=== PATIENT | male | born 1965 | race Caucasian/White ===

== ENCOUNTER 2016-09-03 16:54 | Observation (INO) ==
[2016-09-03 17:37] LABS: Basophils # 0.1 K/mcL (0.0-0.2); Basophils % 0.6 %; Eosinophils # 0.1 K/mcL (0.0-0.6); Eosinophils % 1.4 %; Hematocrit 44.5 % (37.5-50.1); Hemoglobin 14.7 g/dL (12.9-16.9); Immature Granulocytes % 0.4 % (0-4); Lymphocytes # 2.6 K/mcL (0.6-4.6); Lymphocytes % 26.3 %; Mean Corpuscular Hemoglobin 28.6 pg (28.0-33.3); Mean Corpuscular Volume 86.6 fL (83.0-100.0); Mean Platelet Volume 9.4 fL (9.4-12.4); Monocytes # 0.8 K/mcL (0.0-1.3); Monocytes % 7.9 %; Neutrophils # 6.4 K/mcL (1.6-8.9); Platelet Count 253 K/mcL (140-400); Red Blood Count 5.14 M/mcL (4.19-5.50); Red Cell Distribution Width 12.4 % (11.5-14.5); Segmented Neutrophils % 63.4 %
--- NOTE | 2016-09-03 17:40 | Emergency Department Note ---
Disposition Clinical Impression: Chest pain Qualifiers: Chest pain type: unspecified Qualified Code(s): R07.9 - Chest pain, unspecified Disposition: Admitted As Inpatient Condition: Good [facility] - General Adult HPI - General Stated complaint: chest pain Time Seen by Provider: 09/03/16 17:04 Source: patient Mode of arrival: ambulatory Limitations: no limitations Nursing Notes Reviewed: Yes Vital Signs Reviewed: Yes - History of Present Illness HPI Narrative: Patient here for evaluation of chest pain and associated tightness that started at 2 PM. Patient has a history of atrial fibrillation and pacemaker placement secondary to cardiomyopathy. Diabetes. Patient states symptoms started while working and sitting at a desk. Patient states that there is no specific stressors beyond on basic financial stress. Patient states this feels different than his acid reflux in the past and was not eating at this point. Patient states that symptoms are worse when he is laying down slightly better when sitting up. Patient has had some sinus congestion and was recently started on antibiotics. No specific viral syndromes at this time. Patient's tightness of his \ chest does not cause him to feel short of breath. - Related Data Home Medications Medication Instructions Recorded Confirmed Aspirin [Adult Low Dose Aspirin EC] 81 mg PO HS 02/04/15 02/04/15 Carvedilol [Coreg] 50 mg PO BID 02/04/15 02/04/15 Dicyclomine [Bentyl] 20 mg PO QID 02/04/15 02/04/15 Digoxin [Lanoxin] 250 mg PO DAILY 02/04/15 02/04/15 Lisinopril [Zestril] 5 mg PO DAILY 02/04/15 02/04/15 Metformin [Glucophage] 500 mg PO DAILY 02/04/15 02/04/15 Pravastatin Sodium [Pravachol] 40 mg PO HS 02/04/15 02/04/15 Spironolactone [Aldactone] 12.5 mg PO DAILY 02/04/15 02/04/15 Warfarin [Coumadin] 5 mg PO DAILY 02/04/15 02/04/15 Previous Rx's Medication Instructions Recorded Cyclobenzaprine [Flexeril] 10 mg PO BID #10 tablet 02/04/15 diazePAM [Valium] 5 mg PO TID PRN #15 tablet 02/08/15 methylPREDNISolone [Medrol] 1 packet PO DAILY #1 packet 02/08/15 Ipratropium/Albuterol Neb [Duoneb] 3 ml IH Q4HR PRN #100 vial.neb 05/01/15 Nebulizer Accessories [Pillow Mask] 1 each MC PRN PRN #1 each 05/01/15 Promethazine/Codeine 5 ml PO Q4HR PRN #120 ml 05/01/15 [Phenergan/Codeine] cephALEXin [Keflex] 500 mg PO QID #40 capsule 12/20/15 HYDROcodone/Acet 5/325 mg [[place] 1 tab PO Q6H PRN #12 tab 03/15/16 5-325 mg] methylPREDNISolone [Medrol] 4 mg PO TAPER #21 tablet 03/15/16 cephALEXin [Keflex] 500 mg PO QID #40 capsule 03/28/16 methylPREDNISolone [Medrol] 4 mg PO TAPER #21 tablet 03/28/16 Allergies Allergy/AdvReac Type Severity Reaction Status Date / Time No Known Allergies Allergy Verified 11/22/15 13:19 Review of Systems: CONSTITUTIONAL: No weight loss, fever, chills, weakness or fatigue. HEENT: Eyes: No visual changes. Ears, Nose, Throat: No hearing loss, difficulty talking or unable to swallow. SKIN: No rash or itching. CARDIOVASCULAR: Chest pain. RESPIRATORY: No shortness of breath, cough or sputum. GASTROINTESTINAL: No anorexia, nausea, vomiting or diarrhea. No abdominal pain or blood. GENITOURINARY: No burning on urination or hematuria. NEUROLOGICAL: No headache, dizziness, syncope, paralysis, ataxia, numbness or tingling in the extremities. No change in bowel or bladder control. MUSCULOSKELETAL: No muscle pain, back pain, joint pain or stiffness. Past Medical History - Past Medical History Medical history: Reports: other Surgical history: Reports: appendectomy, pacemaker/AICD Psychiatric history: Reports: no psych history - Social History Smoking Status: Never smoker Smokeless Tobacco Status: No Alcohol use: Reports: none Drug use: Reports: none Physical Exam General appearance: NAD, conversant Eyes: anicteric sclerae, moist conjunctivae; PERRL HENT: Atraumatic; oropharynx clear with moist mucous membranes and no mucosal ulcerations Neck: Normal inspection; Trachea midline; FROM, supple Lungs: CTA, with normal respiratory effort and no intercostal retractions CV: RRR, no MRGs Abdomen: Soft, non-tender; no rebound or gaurding Extremities: No peripheral edema or extremity lymphadenopathy Skin: Normal temperature; no rash, ulcers or lesions Psych: Appropriate mood and affect Neuro: alert and oriented to person, place and time Course - Reevaluation(s) Reevaluation #1: Discussed with patient negative findings at this point. After sure decision making the patient will be brought in for further evaluation of chest pain to rule out cardiac etiology. Upon further history taking the patient states that he take Coumadin for A. fib and upon medical review the history of digoxin use. These labs will also be ordered for further differentiation. - Consultations Consultation #1: Discussed with the hospitalist, Vick. Patient accepted for admission. Vital Signs Temperature 98.2 F 09/03/16 17:07 Pulse Rate 78 09/03/16 17:07 Respiratory Rate 16 09/03/16 17:07 Blood Pressure 126/98 09/03/16 17:07 O2 Sat by Pulse Oximetry 97 09/03/16 17:07 Temperature 98.2 F 09/03/16 17:07 Pulse Rate 61 09/03/16 17:49 Respiratory Rate 18 09/03/16 17:49 Blood Pressure 126/98 09/03/16 17:49 O2 Sat by Pulse Oximetry 97 09/03/16 17:49 Oxygen Delivery Oxygen Delivery Room Air Medical Decision Making - Medical Records Medical records reviewed: Yes I reviewed the patient's medical records. - Lab Data Lab results reviewed: Yes I reviewed the patient's lab results. Result diagrams: 09/03/16 17:28 09/03/16 17:28 Lab Results 09/03/16 09/03/16 09/03/16 Range/Units 17:28 17:28 17:28 WBC 10.0 (4.3-11.1) K/mcL RBC 5.14 (4.19-5.50) M/mcL Hgb 14.7 (12.9-16.9) g/dL Hct 44.5 (37.5-50.1) % MCV 86.6 (83.0-100.0) fL MCH 28.6 (28.0-33.3) pg MCHC 33.0 (31.6-35.5) g/dL RDW 12.4 (11.5-14.5) % Plt Count 253 (140-400) K/mcL MPV 9.4 (9.4-12.4) fL Immature Gran % 0.4 (0-4) % Seg Neutrophils % 63.4 % Lymphocytes % 26.3 % Monocytes % 7.9 % Eosinophils % 1.4 % Basophils % 0.6 % Neutrophils # 6.4 (1.6-8.9) K/mcL Lymphocytes # 2.6 (0.6-4.6) K/mcL Monocytes # 0.8 (0.0-1.3) K/mcL Eosinophils # 0.1 (0.0-0.6) K/mcL Basophils # 0.1 (0.0-0.2) K/mcL Sodium 138 (136-145) mEq/L Potassium 4.3 (3.5-4.5) mEq/L Chloride 102 (98-109) mEq/L Carbon Dioxide 31 H (19-29) mEq/L BUN 16 (8-26) mg/dL Creatinine 1.06 (0.72-1.25) mg/dL Est GFR ( Amer) > 60 (> 60) Est GFR (Non-Af Amer) > 60 (> 60) BUN/Creatinine Ratio 15 (6-26) Glucose 124 H (70-99) mg/dL Calculated Osmolality 289 (280-300) Calcium 9.2 (8.6-10.8) mg/dL Total Bilirubin 0.5 (0.2-1.2) mg/dL Direct Bilirubin 0.2 (0.0-0.5) mg/dL Indirect Bilirubin 0.3 (0.0-1.2) mg/dL AST 21 (5-34) Units/L ALT 34 (0-55) Units/L Alkaline Phosphatase 88 (38-126) Units/L Troponin I 0.00 (0-0.03) ng/mL Serum Total Protein 7.8 (6.0-8.3) g/dL Albumin 4.2 (3.5-5.0) g/dL Globulin 3.6 H (2.4-3.5) g/dL Albumin/Globulin Ratio 1.2 (1.1-2.2) Lipase 25 (8-78) Units/L - Radiology Data Radiology results reviewed: Yes I reviewed the patient's radiology results. - EKG Data EKG #1 EKG attestation: Yes I reviewed and interpreted this EKG. EKG results narrative: EKG shows ventricularly paced rhythm at 75. QRS 161. QTC 425. Patient has no significant ST elevations or depressions. No Sgarbossa criteria met. No previous EKG for comparison. Attestation Statement - Attestation Attestation: I examined this patient and my medical decision-making was reviewed with the Resident Physician. I agree with the documented findings, disposition and treatment plan as described except to the extent set forth below. Patient to the emergency department with a chief complaint of chest pain. Intermittent episodes over the past couple of months. Worse today. Only cardiac history is a pacemaker placement for cardiomyopathy. On exam he is in no acute distress. His lungs are clear. Plan. EKG is paced. Troponin is negative. Admitted for further cardiac workup.
[2016-09-03 17:52] LABS: Alanine Aminotransferase 34 Units/L (0-55); Albumin 4.2 g/dL (3.5-5.0); Albumin/Globulin Ratio 1.2 (1.1-2.2); Alkaline Phosphatase 88 Units/L (38-126); Aspartate Amino Transferase 21 Units/L (5-34); BUN/Creatinine Ratio 15 (6-26); Bilirubin,Direct 0.2 mg/dL (0.0-0.5); Bilirubin,Indirect 0.3 mg/dL (0.0-1.2); Bilirubin,Total 0.5 mg/dL (0.2-1.2); Blood Urea Nitrogen 16 mg/dL (8-26); Calcium 9.2 mg/dL (8.6-10.8); Carbon Dioxide 31 mEq/L (19-29); Chloride 102 mEq/L (98-109); Globulin 3.6 g/dL (2.4-3.5); Glucose 124 mg/dL (70-99); Lipase 25 Units/L (8-78); Osmolality,Calculated 289 (280-300); Potassium 4.3 mEq/L (3.5-4.5); Sodium 138 mEq/L (136-145); Total Protein 7.8 g/dL (6.0-8.3); eGFR For African Americans > 60 (> 60); eGFR For Non-African Americans > 60 (> 60)
[2016-09-03] MEDS ORDERED: Aspirin 81 MG TAB.CHEW PO STA (18:29)
[2016-09-03 18:44] LABS: INR 2.5; Prothrombin Time 27.8 Seconds (9.4-12.1)
[2016-09-03 18:58] LABS: Digoxin 0.8 ng/mL (0.8-2.0)
[2016-09-03] MEDS ORDERED: Naloxone 0.4 MG/ML INJ IVP PRN (19:56)
[2016-09-03] MEDS ORDERED: Acetaminophen 325 MG TABLET PO PRN (19:56)
[2016-09-03] MEDS ORDERED: Warfarin perPT PO PRN (20:06)
--- NOTE | 2016-09-03 20:09 | Internal Med History&Physical ---
<Rocio Hickman - Last Filed: 09/03/16 20:33> Date of Encounter: 09/03/16 Time of Encounter: 20:07 Assessment and Plan (1) Chest pain Current visit: Yes Status: Acute Patient presents with chest pain on the left side radiating to his left shoulder , and accompanied by tightness across his entire chest. He has significant history of afib on coumadin, non-ischemic cardiomyopathy on digoxin and with pacemaker. Risk factors include diabetes, obesity, and strong family history. Patient had a cardiac cath 05/02/13 which showed minimal coronary artery disease , 20% stenosis of the LAD and 10% stenosis of the 1st marginal. Most recent echo 08/14/14 showed LVEF of 50% with mild LVH and low normal systolic function. Today, EKG showed ventricular paced rhythm without ST elevation or depression , Troponin was negative at 0.00. Continuous monitoring analyst serial troponins echocardiogram Qualifiers: Chest pain type: precordial pain Qualified Code(s): R07.2 - Precordial pain (2) Type 2 diabetes mellitus Current visit: Yes Status: Acute Diabetic heart healthy diet Hold metformin Check blood sugars before meals at bedtime Sliding scale insulin correction dose before meals at bedtime Hypoglycemic protocol Qualifiers: Diabetes mellitus complication status: without complication Diabetes mellitus bed bug exterminator insulin use: without group home use Qualified Code(s): E11.9 - Type 2 diabetes mellitus without complications (3) Sleep apnea Current visit: Yes Status: Acute Respiratory therapy consulted for CPAP Qualifiers: Sleep apnea type: unspecified type Qualified Code(s): G47.30 - Sleep apnea , unspecified (4) Anticoagulated on Coumadin Current visit: Yes Status: Acute INR therapeutic at 2.5 today. Pharmacy to dose Coumadin, check PT/INR daily. (5) Chronic sinusitis Current visit: Yes Status: Acute Patient recently prescribed Biaxin for chronic sinusitis, continue home dose of Biaxin. Qualifiers: Sinusitis location: unspecified location Qualified Code(s): J32.9 - Chronic sinusitis, unspecified (6) Non-ischemic cardiomyopathy Current visit: Yes Status: Acute Patient with history of nonischemic cardiomyopathy with pacemaker and AICD placement in 2004. EKG shows ventricular paced rhythm at 75. Patient takes digoxin and level is within normal limits. Continue home dose of digoxin. (7) DVT prophylaxis Current visit: Yes Status: Acute anti-embolic stockings patient on coumadin for afib. Additional pharmacologic prophylaxis not necessary. Internal Medicine - H&P: HPI Chief complaint: chest pain Admitted From: Emergency Dept History of present illness: Mr. Choudhary is a 50 year old male with diabetes, atrial fibrillation on Coumadin, cardiomyopathy with pacemaker and AICD placement, chronic sinusitis, and sleep apnea presented to the emergency department today with complaints of chest pain. Patient reports that he has had chest pain on and off for a while, but this time his chest pain lasted longer than usual so he presented to the emergency department. Patient states the pain started today at approximately 2 PM, is on the left side of his chest radiating to his left shoulder, he describes the pain as sharp, accompanied by tightness across his entire chest. He reports occasional shortness of breath. He denies any lightheadedness, sweating, palpitations. He denies any nausea, vomiting, abdominal pain. Evaluation in the emergency department included EKG which showed ventricular paced rhythm with no ST elevations or depressions. INR was therapeutic at 2.5. Digoxin was within normal limits of 0.8. Chest x-ray showed no acute abnormality. Troponin was negative at 0.00. On exam, patient alert and oriented, in no acute distress. Heart has regular rate and rhythm, lungs are clear bilaterally to auscultation. No peripheral edema. Past Med Surg Social Fam HX - Past Medical History Medical history: other Psychiatric history: no psych history - Past Surgical History Surgical History: appendectomy, pacemaker/AICD - Social History Smoking Status: Never smoker Smokeless Tobacco Status: No Alcohol use: none Drug use: none - Family History Father Living Status: Age at : 47 Cause of : ME Hx Family Cardiac Disorders: Yes Brother Living Status: Age at : 52 Cause of : ME Hx Family Cardiac Disorders: Yes Internal Medicine - H&P: Meds Aspirin [Adult Low Dose Aspirin EC] 81 mg PO HS 02/04/15 [History] Carvedilol [Coreg] 50 mg PO BID 02/04/15 [History] Dicyclomine [Bentyl] 20 mg PO QID 02/04/15 [History] Digoxin [Lanoxin] 0.25 mg PO DAILY 02/04/15 [History] Lisinopril [Zestril] 5 mg PO DAILY 02/04/15 [History] Metformin [Glucophage] 500 mg PO DAILY 02/04/15 [History] Pravastatin Sodium [Pravachol] 40 mg PO HS 02/04/15 [History] Spironolactone [Aldactone] 12.5 mg PO DAILY 02/04/15 [History] Warfarin [Coumadin] 5 mg PO SUTUWETHSA 02/04/15 [History] Clarithromycin [Biaxin] 500 mg PO AD 09/03/16 [History] Omeprazole [PriLOSEC] 40 mg PO DAILY PRN 09/03/16 [History] Warfarin [Coumadin] 2.5 mg PO MOFR 09/03/16 [History] Allergies No Known Allergies Allergy (Verified 11/22/15 13:19) All Systems PM: A 10-system review of systems was performed and is negative for pertinent findings except as documented above in the HPI. - Constitutional Constitutional: no chills, no fever(s), no night sweats - EENT Eyes: no change in vision, no discharge, no pain, no photophobia Ears: no ear discharge, no ear pain, no tinnitus Nose, mouth and throat: no dysphagia, no nasal discharge, no neck pain, no sore throat - Cardiovascular Cardiovascular ROS IM: chest pain, dyspnea, no diaphoresis, no lightheadedness, no palpitations, no syncope - Respiratory Respiratory: dyspnea, no cough, no wheezing, no excessive phlegm production - Gastrointestinal Gastrointestinal: no abdominal pain, no diarrhea, no hematemesis, no hematochezia, no melena, no nausea, no vomiting - Musculoskeletal Musculoskeletal ROS IM: no numbness, no tingling - Integumentary Integumentary IM: no rash, no unusual bruising - Neurological Neurological ROS: no confusion, no convulsions, no focal weakness, no numbness, no tingling, no tremor(s) - Hematologic/Lymphatic Hematologic/Lymphatic: no easy bruising - Constitutional Vitals: Temp Pulse Resp BP Pulse Ox 98.2 F 61 18 126/98 97 09/03/16 19:09 09/03/16 17:49 09/03/16 19:09 09/03/16 19:09 09/03/16 17:49 General appearance: Present: A&O X 3, morbidly obese, pleasant, no acute distress - Head Head exam: Present: atraumatic, normocephalic - Eye Eye exam: Present: PERRL, conjuntiva pink, sclera anicteric Pupils: Present: PERRL - Neck Neck exam general surgery: Present: supple, trachea midline. Absent: lymphadenopathy - Respiratory Respiratory exam: Present: CTAB. Absent: accessory muscle use, rales, rhonchi, wheezes - Cardiovascular Cardiovascular exam: Present: RRR, +S1, +S2. Absent: diastolic murmur, gallop, rubs, systolic murmur - GI/Abdominal GI/Abdominal exam: Present: normal bowel sounds, soft, no peritoneal signs. Absent: distended, tenderness - Extremities Exam Extremities exam: Present: warm, radial pulses palpable and symetrical. Absent : calf tenderness, cyanotic, pedal edema - Neurological Exam Neurological exam: Present: CN II-XII intact, oriented X3, no focal deficits. Absent: facial droop, speech deficit - Skin Skin exam: Present: dry, intact Internal Med - H&P Results - Labs CBC & Chem 7: 09/03/16 17:28 09/03/16 17:28 Labs: All Lab Results (24 Hours) 09/03/16 09/03/16 09/03/16 Range/Units 17:28 17:28 17:28 WBC 10.0 (4.3-11.1) K/mcL RBC 5.14 (4.19-5.50) M/mcL Hgb 14.7 (12.9-16.9) g/dL Hct 44.5 (37.5-50.1) % MCV 86.6 (83.0-100.0) fL MCH 28.6 (28.0-33.3) pg MCHC 33.0 (31.6-35.5) g/dL RDW 12.4 (11.5-14.5) % Plt Count 253 (140-400) K/mcL MPV 9.4 (9.4-12.4) fL Immature Gran % 0.4 (0-4) % Seg Neutrophils % 63.4 % Lymphocytes % 26.3 % Monocytes % 7.9 % Eosinophils % 1.4 % Basophils % 0.6 % Neutrophils # 6.4 (1.6-8.9) K/mcL Lymphocytes # 2.6 (0.6-4.6) K/mcL Monocytes # 0.8 (0.0-1.3) K/mcL Eosinophils # 0.1 (0.0-0.6) K/mcL Basophils # 0.1 (0.0-0.2) K/mcL PT (9.4-12.1) Seconds INR Sodium 138 (136-145) mEq/L Potassium 4.3 (3.5-4.5) mEq/L Chloride 102 (98-109) mEq/L Carbon Dioxide 31 H (19-29) mEq/L BUN 16 (8-26) mg/dL Creatinine 1.06 (0.72-1.25) mg/dL Est GFR ( Amer) > 60 (> 60) Est GFR (Non-Af Amer) > 60 (> 60) BUN/Creatinine Ratio 15 (6-26) Glucose 124 H (70-99) mg/dL Calculated Osmolality 289 (280-300) Calcium 9.2 (8.6-10.8) mg/dL Total Bilirubin 0.5 (0.2-1.2) mg/dL Direct Bilirubin 0.2 (0.0-0.5) mg/dL Indirect Bilirubin 0.3 (0.0-1.2) mg/dL AST 21 (5-34) Units/L ALT 34 (0-55) Units/L Alkaline Phosphatase 88 (38-126) Units/L Troponin I 0.00 (0-0.03) ng/mL B-Natriuretic Peptide (0-100) pg/mL Serum Total Protein 7.8 (6.0-8.3) g/dL Albumin 4.2 (3.5-5.0) g/dL Globulin 3.6 H (2.4-3.5) g/dL Albumin/Globulin Ratio 1.2 (1.1-2.2) Lipase 25 (8-78) Units/L Digoxin 0.8 (0.8-2.0) ng/mL 09/03/16 09/03/16 Range/Units 17:28 17:28 WBC (4.3-11.1) K/mcL RBC (4.19-5.50) M/mcL Hgb (12.9-16.9) g/dL Hct (37.5-50.1) % MCV (83.0-100.0) fL MCH (28.0-33.3) pg MCHC (31.6-35.5) g/dL RDW (11.5-14.5) % Plt Count (140-400) K/mcL MPV (9.4-12.4) fL Immature Gran % (0-4) % Seg Neutrophils % % Lymphocytes % % Monocytes % % Eosinophils % % Basophils % % Neutrophils # (1.6-8.9) K/mcL Lymphocytes # (0.6-4.6) K/mcL Monocytes # (0.0-1.3) K/mcL Eosinophils # (0.0-0.6) K/mcL Basophils # (0.0-0.2) K/mcL PT 27.8 H (9.4-12.1) Seconds INR 2.5 Sodium (136-145) mEq/L Potassium (3.5-4.5) mEq/L Chloride (98-109) mEq/L Carbon Dioxide (19-29) mEq/L BUN (8-26) mg/dL Creatinine (0.72-1.25) mg/dL Est GFR ( Amer) (> 60) Est GFR (Non-Af Amer) (> 60) BUN/Creatinine Ratio (6-26) Glucose (70-99) mg/dL Calculated Osmolality (280-300) Calcium (8.6-10.8) mg/dL Total Bilirubin (0.2-1.2) mg/dL Direct Bilirubin (0.0-0.5) mg/dL Indirect Bilirubin (0.0-1.2) mg/dL AST (5-34) Units/L ALT (0-55) Units/L Alkaline Phosphatase (38-126) Units/L Troponin I (0-0.03) ng/mL B-Natriuretic Peptide 43 (0-100) pg/mL Serum Total Protein (6.0-8.3) g/dL Albumin (3.5-5.0) g/dL Globulin (2.4-3.5) g/dL Albumin/Globulin Ratio (1.1-2.2) Lipase (8-78) Units/L Digoxin (0.8-2.0) ng/mL - Diagnostic Studies Chest x-ray Additional comments: Chest X-Ray 09/03/16 17:12 IMPRESSION: No acute abnormality D/ / Harry Malloy / Harry Malloy Interpreting Provider: Harry Malloy <Enrique Haddad - Last Filed: 09/03/16 20:58> Date of Encounter: 09/03/16 Internal Medicine - H&P: HPI History of present illness: Mr. Choudhary is a 50 year old male All Systems PM: A 10-system review of systems was performed and is negative for pertinent findings except as documented above in the HPI. - Constitutional Vitals: Temp Pulse Resp BP Pulse Ox 98.6 F 76 15 98/67 95 09/03/16 20:11 09/03/16 20:11 09/03/16 20:11 09/03/16 20:11 09/03/16 20:11 Internal Med - H&P Results - Labs CBC & Chem 7: 09/03/16 17:28 09/03/16 17:28 - Attending Attestation I have seen and examined the patient. I have discussed about the patient with Rocio Hickman LITIGATION SECRETARY. I have reviewed the orders in the note. Patient is a 50-year-old male with a past history of nonischemic cardiomyopathy , chronic sinusitis, chronic atrial fibrillation, sleep apnea and diabetes. He presents to the ED with complaints of chest pain. He states pain has been on off for a while but this time it is lasting longer than usual. Started approximately 2 PM. The medial left side of his chest radiating to left shoulder. States it is sharp. Initial EKG shows ventricular paced rhythm with no acute ST-T changes changes. INR is therapeutic. Troponin is negative. Patient is being admitted for chest pain to rule out ACS. Troponins will be trended. Echocardiogram to be done. Repeat EKG in a.m. Patient and have been explained about his condition and plan of care. They understood and agreed. No unanswered questions. CODE STATUS full code. Heart rate 76, blood pressure 98/67, O2 sat 94% on room air, heart S1-S2 positive systolic murmur AICD in place, lungs bilateral good entry no wheezes or crackles, abdomen soft mild epigastric tenderness likely due to gastritis, extremities all pulses, no edema.
[2016-09-03] MEDS ORDERED: *HR* Dextrose 50 % in Water (Syg) 50 ML SYRINGE IVP PRN (20:10)
[2016-09-03] MEDS ORDERED: Dextrose Gel 15 GM PO PRN ×2 (20:10)
[2016-09-03] MEDS ORDERED: D5% in Water 1,000 ML IVC PRN (20:10)
[2016-09-03] MEDS ORDERED: Nitroglycerin 0.4 MG TAB.SUBL SL PRN (20:48)
[2016-09-03] MEDS ORDERED: *HR* Morphine 2 MG/ML SYRINGE IVP PRN (20:49)
[2016-09-03] MEDS ORDERED: Aspirin Enteric Coated 81 MG Tablet PO SCH (21:00)
[2016-09-03] MEDS ORDERED: Insulin LISPRO 300 UNITS/3 ML VIAL SQ SCH (21:00)
[2016-09-03] MEDS ORDERED: *HR* Warfarin 5 MG TABLET PO SCH (21:22)
[2016-09-03] MEDS: cephALEXin 500 MG CAPSULE PO SCH (21:32)
[2016-09-04 01:34] LABS: INR 2.4
[2016-09-04 01:38] LABS: Basophils # 0.1 K/mcL (0.0-0.2); Basophils % 0.7 %; Eosinophils # 0.2 K/mcL (0.0-0.6); Eosinophils % 1.9 %; Hemoglobin 13.7 g/dL (12.9-16.9); Immature Granulocytes % 0.6 % (0-4); Lymphocytes # 3.4 K/mcL (0.6-4.6); Lymphocytes % 37.5 %; Mean Corpuscular HGB Conc 32.6 g/dL (31.6-35.5); Mean Corpuscular Hemoglobin 28.2 pg (28.0-33.3); Mean Corpuscular Volume 86.6 fL (83.0-100.0); Mean Platelet Volume 9.6 fL (9.4-12.4); Monocytes # 0.9 K/mcL (0.0-1.3); Monocytes % 9.4 %; Neutrophils # 4.5 K/mcL (1.6-8.9); Platelet Count 240 K/mcL (140-400); Red Blood Count 4.85 M/mcL (4.19-5.50); Red Cell Distribution Width 12.6 % (11.5-14.5); Segmented Neutrophils % 49.9 %
[2016-09-04 01:50] LABS: BUN/Creatinine Ratio 14 (6-26); Blood Urea Nitrogen 14 mg/dL (8-26); Calcium 8.7 mg/dL (8.6-10.8); Carbon Dioxide 25 mEq/L (19-29); Chloride 104 mEq/L (98-109); Chol/HDL Ratio 4.9 (0-4.9); Cholesterol 112 mg/dL (< 200); Glucose 188 mg/dL (70-99); HDL Cholesterol 23 mg/dL (40-59); LDL Cholesterol,Calculated 34 mg/dL (0-99); Osmolality,Calculated 289 (280-300); Potassium 3.8 mEq/L (3.5-4.5); Sodium 137 mEq/L (136-145); Triglycerides 276 mg/dL (< 150); eGFR For African Americans > 60 (> 60); eGFR For Non-African Americans > 60 (> 60)
[2016-09-04] MEDS: Insulin LISPRO 300 UNITS/3 ML VIAL SQ SCH ×2 (08:25→13:30)
[2016-09-04] MEDS ORDERED: Spironolactone 25 MG TABLET PO SCH (09:00)
[2016-09-04] MEDS ORDERED: *HR* Digoxin 0.25 MG TABLET PO SCH (09:00)
[2016-09-04] MEDS ORDERED: Perflutren Lipid Microsphere 1.3 ML in 0.9 % Sodium Chloride 8.7 ML IVP ONE (10:54)
[2016-09-04] MEDS ORDERED: Perflutren Lipid Microsphere 2 ML VIAL ONE (10:57)
[2016-09-04] MEDS ORDERED: Regadenoson 0.4 MG/5 ML SYRINGE IVP ONE (11:09)
[2016-09-04] MEDS: cephALEXin 500 MG CAPSULE PO SCH (13:25)
[2016-09-04 15:31] VITALS: BP 110/70
--- NOTE | 2016-09-04 15:41 | Electrocardiograph Report ---
[place] [id number] Test Date: 2016-09-04 Pat Name: Ildefonso Choudhary Department: 113 Room: 3B Gender: M Front Office Clerk: JENNIFER : 1965 Requested By: Marielos Rosario Order Number: [id number] Reading MD: Andrew Rose MD Measurements Intervals Bradley Rate: 55 P: OR: 0 QRS: 153 QRSD: 177 T: -27 QT: 444 QTc: 434 Interpretive Statements ELECTRONIC VENTRICULAR PACEMAKER Electronically Signed On 09-04-2016 15:39:23 EDT by Andrew Rose MD
--- NOTE | 2016-09-04 16:32 | Discharge Summary ---
Date of Encounter: 09/04/16 Time of Encounter: 16:29 - Discharge Diagnosis (1) Chest pain Priority: Primary Status: Acute Qualifiers: Chest pain type: precordial pain Qualified Code(s): R07.2 - Precordial pain (2) Non-ischemic cardiomyopathy Priority: Secondary Status: Chronic (3) Anticoagulated on Coumadin Priority: Secondary Status: Chronic (4) Chronic sinusitis Priority: Secondary Status: Chronic Qualifiers: Sinusitis location: unspecified location Qualified Code(s): J32.9 - Chronic sinusitis, unspecified (5) Sleep apnea Priority: Secondary Status: Chronic Qualifiers: Sleep apnea type: unspecified type Qualified Code(s): G47.30 - Sleep apnea , unspecified (6) Type 2 diabetes mellitus Priority: Secondary Status: Chronic Qualifiers: Diabetes mellitus complication status: without complication Diabetes mellitus moth exterminator insulin use: without senior living use Qualified Code(s): E11.9 - Type 2 diabetes mellitus without complications - Discharge Medications Home Medications: Aspirin [Adult Low Dose Aspirin EC] 81 mg PO HS 02/04/15 [History] Carvedilol [Coreg] 50 mg PO BID 02/04/15 [History] Dicyclomine [Bentyl] 20 mg PO QID 02/04/15 [History] Digoxin [Lanoxin] 0.25 mg PO DAILY 02/04/15 [History] Lisinopril [Zestril] 5 mg PO DAILY 02/04/15 [History] Metformin [Glucophage] 500 mg PO DAILY 02/04/15 [History] Pravastatin Sodium [Pravachol] 40 mg PO HS 02/04/15 [History] Spironolactone [Aldactone] 12.5 mg PO DAILY 02/04/15 [History] Warfarin [Coumadin] 5 mg PO SUTUWETHSA 02/04/15 [History] Clarithromycin [Biaxin] 500 mg PO AD 09/03/16 [History] Omeprazole [PriLOSEC] 40 mg PO DAILY PRN 09/03/16 [History] Warfarin [Coumadin] 2.5 mg PO MOFR 09/03/16 [History] Allergies/Adverse Reactions: Allergies No Known Allergies Allergy (Verified 11/22/15 13:19) Procedures/tests Complete & Pending: Procedures Performed prior 72 hours Category Date Time Status NM prosper perf SPECT multi [NM] Routine Exams 09/04/16 08:14 Taken ECG 12 lead ECG [ECG] Routine Y 09/04/16 04:29 Completed EV echocardiogram w enhance Routine Y 09/04/16 19:59 Completed SP pharm nuclear stress Routine Y 09/04/16 08:14 Completed Date of admission: 09/03/16 18:55 Primary care physician: John Carter - Patient Status Disposition: Home, Self-Care Condition: Good Functional capacity at discharge: independent ambulation Overall status at discharge: patient is progressing back to baseline - Discharge Instructions [facility] [Non-Partnered Physician] - 09/12/16 3:30 pm Forms: ED Satisfaction Letter Additional Instructions: Please call Cardiology Scheduling tomorrow at [phone] first thing in the morning to schedule the second part of your stress test. Tell them that you were admitted to the hospital and had the first part of your Stress Test on 09/04. - Diet and Activity Activity: resume usual activities as tolerated Diet: diabetic diet, low fat, low cholesterol, low salt diet Interval History: patient denies any chest pain or shortness of breath. he is eager to go home. Hospital course: Mr. Choudhary is a 50 year old male with past medical history of CAD, ischemic CMP, and a fib on coumadin who presents with chest pain on the left side radiating to his left shoulder. Patient had a cardiac cath 05/02/13 which showed minimal coronary artery disease, 20% stenosis of the LAD and 10% stenosis of the 1st marginal. He remained asymptomatic and hemodynamically stable during this hospitalization. EKG showed ventricular paced rhythm. Troponinx3 were negative. Echocardiogram showed LVEF 45-50%, mild global LV systolic dysfunction. Patient had the first part of the stress test but she preferred to go home and have the second part as outpatient. He reported no chest pain or shortness of breath at rest or during ambulation. He was back to his baseline. PLAN: Patient will do the second part of the stress test within the next week. - Time Spent with Patient Total time spent providing and/or coordinating discharge services: - Constitutional Vitals: Temp Pulse Resp BP Pulse Ox 98.9 F 71 18 110/70 96 09/04/16 15:30 09/04/16 15:30 09/04/16 15:30 09/04/16 15:30 09/04/16 15:30 General appearance: Present: cooperative, A&O X 3, morbidly obese, pleasant, no acute distress, answers questions appropriately - Eye Eye exam: Present: PERRL, sclera anicteric - Respiratory Respiratory exam: Present: CTAB - Cardiovascular Cardiovascular exam: Present: RRR - GI/Abdominal GI/Abdominal exam: Present: normal bowel sounds, soft. Absent: distended, tenderness - Extremities Exam Extremities exam: Absent: pedal edema - Back Exam Back exam: Absent: CVA tenderness (L), CVA tenderness (R) - Neurological Exam Neurological exam: Present: alert, oriented X3, no focal deficits, strengths equal and symetr throughout. Absent: facial droop, speech deficit
--- NOTE | 2016-09-05 09:42 | Nuclear Medicine Stress Report ---
Regadenoson Nuclear 2 day Name: Ildefonso Choudhary Date of Study: 09/04/2016 Date: 1965 Ht: 70.0 in Medical Record#: [id number] Age: 50 Wt: 286.0 lb Gender: Male Order #: [id number] [facility] Room: [facility] Supervising Provider: Mariana Moore CNP Reading Physician: Katheryn Han DO Ordering Physician: Marielos Rosario MD Primary Care Physician: John Carter DO Stress Technologist: Itzel Lanier ORDER TAKER, CCT Respiratory Therapy Aide: Mahsa Panda Indications: Chest Pain Impression: Technically challenging, poor quality 2-Day study. Multiple perfusion defects do not suggest ischemia (as described below). Recommend clinical correlation. Pharmacologic ECG was non diagnostic for ischemia due to paced rhythm. History: Hypertension Diabetes Hypercholesteremia Stress Test Summary: Stress Test Type: Pharmacologic Regadenoson 0.4mg/5ml given IV Baseline Information: Initial Heart Rate: 69 Blood Pressure: 128/74 Stress Information: Test Terminated Due to (primary): As per protocol Maximum Blood Pressure: 128/62 Maximum Heart Rate: 90 Percent Maximum Heart Rate Achieved: 61 Double Product: [id number] METS Reached: 1 Symptoms: No chest symptoms Nuclear Summary: SPECT myocardial perfusion imaging using Tc99m Sestamibi given intravenously was performed at rest and following cardiac stress testing. The resting images were obtained following initial dose of 29.4 mCi. Following stress an additional dose of 32.6 mCi was given at peak exercise or 30 seconds post regadenoson infusion. Medication Given: Time Medication Dose Units Route Findings: Stress Note * Resting ECG demonstrated a v-paced rhythm. * Pharmacologic stress ECG is non diagnostic for ischemia due to baseline paced rhythm. * No arrhythmias were noted during stress. * Patient had no chest pain during stress. Hemodynamic responses * Normal hemodynamic responses to pharmacologic stress. Study Quality * Technically challenging 2-day study. Left Ventricle * The left ventricular size is normal by volumes but visually appears enlarged. TID * No evidence of transient ischemic dilatation. Lung Uptake * There is no evidence of increase lung uptake. PERFUSION * There is global hypoperfusion with patchy uptake on both rest and stress VLA imaging. * There is otherwise noted a moderate intensity small size fixed perfusion defect involving the apex. There may be mild decrease in wall thickening in this area. Findings most likely represent apical wall thinning artifact. * There is a small size, mild intensity fixed perfusion defect involving the mid to distal anterior wall. Findings most likely represent artifact. * Other areas demonstrate normal rest and stress perfusion. Gated EF % * Gated EF = 57%. NORMALS * Apical wall may demonstrate decrease in wall thickening. Otherwise wall motion and thickening appear normal. Updated by Katheryn Han on 09/05/2016 9:33:09 AM electronically signed on 09/05/2016 9:35:36 AM with status of Final
[2016-09-05] MEDS ORDERED: *HR* Warfarin 2.5 MG TABLET PO SCH (18:00)
== END 2016-09-04 17:00 | disposition home or self-care (01) ==
LOC: EMEROO 16:54 → 3BNU 16:54 → SUATTDRO 18:55 → 3BNU 19:51
PROVIDERS: ADMIT Nurse Practitioner Acute Care; ATTEND Internal Medicine